=== PATIENT | female | born 1955 | race Caucasian/White ===

== ENCOUNTER 2016-07-27 07:38 | Emergency (ER) | payer MEDICARE, MEDICAID ==
[~2016-07-27] VITALS: Ht 167.6 cm; Wt 127.0 kg
[~2016-07-27 07:38] MED LIST: WARF5TAB77 PO
--- NOTE | 2016-07-27 08:33 | NUR ---
DR SALGADO AT THE BEDSIDE FOR EVAL AND EXAM.
[2016-07-27 08:55] VITALS: BP 137/89
--- NOTE | 2016-07-27 08:55 | NUR ---
Patient discharged to home in stable conditon. Written and verbal after care instructions given. Patient verbalizes understanding of instructions.
== END 2016-07-27 08:56 | disposition home or self-care (01) ==
LOC: ER 07:38
DX: F41.9 Anxiety disorder, unspecified (principal); K21.9 Gastro-esophageal reflux disease without esophagitis
CPT/HCPCS: A4663